=== PATIENT | female | born 1975 | race Caucasian/White ===

== ENCOUNTER 2019-08-03 10:02 | Outpatient (CLI) | payer OTHER, SELFPAY ==
--- NOTE | ~2019-08-03 | US_ITS ---
EXAMINATION: US carotid duplex BI DATE: 08/03/2019 10:48 INDICATION: Cerebral atherosclerosis. Dizziness. Giddiness. Intermittent lightheadedness. TECHNIQUE: Grayscale, color Doppler, and pulsed Doppler images of the cervical carotid arteries were obtained. The degree of vessel stenosis is placed in one of the following categories: normal, <50%, 5 0-69%, >=70% but less than near-occlusion, near-occlusion, or total occlusion. Note that percent sten osis relative to normal distal artery lumen diameter is indirectly measured from velocity measurement s as described by Florentin, et al. Radiology 2003; 229:340-346. COMPARISON: None. FINDINGS: RIGHT: The right common carotid artery (CCA) peak systolic velocity (PSV) is 120 cm/s. The right internal ca rotid artery (ICA) PSV is 97 cm/s. The right ICA end-diastolic velocity (EDV) is 35 cm/s. The right I CA/CCA PSV ratio is 0.8. Grayscale and color Doppler images yield an estimate of <50% diameter reduct ion from plaque in the ICA. The external carotid artery (ECA) PSV is 136 cm/s. There is antegrade james w in the right vertebral artery. LEFT: The left CCA PSV is 98 cm/s. The left ICA PSV is 112 cm/s. The left ICA EDV is 49 cm/s. The left ICA/ CCA PSV ratio is 1.1. Grayscale and color Doppler images yield an estimate of <50% diameter reduction from plaque in the ICA. The ECA PSV is 128 cm/s. There is antegrade flow in the left vertebral arter y. IMPRESSION: 1. <50% stenosis in the right internal carotid artery. 2. <50% stenosis in the left internal carotid artery. Reviewed, dictated and finalized at location A. [employer]
== END 2019-08-03 10:03 | disposition home or self-care (01) ==
LOC: ANHIMG 10:04
PROVIDERS: PCP Physician Assistant; Visit Provider Physician Assistant
DX: I65.23 Occlusion and stenosis of bilateral carotid arteries (principal)
CPT/HCPCS: 93880

== ENCOUNTER 2019-12-12 10:57 | Outpatient (CLI) | payer OTHER, SELFPAY ==
--- NOTE | ~2019-12-12 | MR_ITS ---
EXAMINATION: MR foot LT wo con DATE: 12/12/2019 11:42 INDICATION: Left foot sprain. TECHNIQUE: Magnetic resonance imaging (MRI) of the left ankle, mid and hindfoot was performed without intravenous contrast. Sequences included sagittal, coronal, and axial proton-density weighted fast s pin echo without and with fat saturation. COMPARISON: None. FINDINGS: Medial ankle ligaments: Deep and superficial deltoid ligaments as well as the spring ligament are normal. Lateral ankle ligaments: The anterior and posterior inferior tibiofibular ligaments are normal. The anterior talofibular, calc aneofibular and posterior talofibular ligaments are normal. Tendons: Small enthesophytes at the calcaneal insertion of the otherwise normal Achilles tendon. There is mild tendinopathy and likely longitudinal split tearing of the radius longus tendon centered at the level of the tip of the lateral malleolus. The peroneus brevis tendon appears normal. The tibialis anterio r and extensor hallucis longus and extensor digitorum longus tendons are normal. The tibialis posteri or, flexor digitorum longus and flexor hallucis longus tendons are normal. Plantar fascia: Mild thickening and minimal increased signal of the proximal plantar aponeurosis at its calcaneal att achment where there is also a moderate-sized plantar calcaneal spur. No significant surrounding edema to suggest acute plantar fasciitis. Bones/other: Bone alignment is normal. Normal marrow signal with no reactive edema, fracture or pathologic marrow replacing process. Joint spaces appear relatively preserved. Sinus Tarsi and tarsal tunnel are unrema rkable. Mild increased fluid signal at the periphery of the extensor digitorum brevis muscle which co uld be related to contusion or low-grade muscle strain. Fluid: Physiologic amount fluid in the joint spaces. Nonspecific mild edema over the dorsum of the foot. IMPRESSION: 1. Mild tendinopathy and longitudinal split tearing of the peroneus longus tendon. 2. Mild increased fluid signal at the periphery of the extensor digitorum brevis muscle which could b e related to contusion or low-grade strain. 3. Chronic mild enthesopathy at the calcaneal insertion of the distal Achilles tendon and proximal pl keyanna aponeurosis. Reviewed, dictated and finalized at location A. IMPRESSION: 1. Mild tendinopathy and longitudinal split tearing of the peroneus longus tend on. 2. Mild increased fluid signal at the periphery of the extensor digitorum brevi s muscle which could be related to contusion or low-grade strain. 3. Chronic mild enthesopathy at the calcaneal insertion of the distal Achilles tendon and proximal plantar aponeurosis.
== END 2019-12-12 10:58 ==
PROVIDERS: Visit Provider Podiatrist Foot & Ankle Surgery
DX: S93.602A Unspecified sprain of left foot, initial encounter (principal); M79.672 Pain in left foot; S96.812A Strain of other specified muscles and tendons at ankle and foot level, left foot, initial encounter; M77.32 Calcaneal spur, left foot
CPT/HCPCS: 73718